=== PATIENT | male | born 1970 | race Caucasian/White ===

== ENCOUNTER 2018-11-19 08:47 | Outpatient (CLI) | payer OTHER | END 2018-11-19 08:50 | LOC: LAB 08:47 | PROVIDERS: ATTEND Family Medicine | DX: E78.5 Hyperlipidemia, unspecified (principal); Z11.3 Encounter for screening for infections with a predominantly sexual mode of transmission | CPT/HCPCS: 36415; 80053; 80061; 86780; 87491; 87591 ==